=== PATIENT | male | born 2000 | race Caucasian/White ===

== ENCOUNTER → 2018-02-03 01:08 | Emergency (ER) | payer BC, SELFPAY ==
[2018-02-03 01:23] VITALS: BP 141/85; PULSE 88; RESP 16; TEMP 36.4; O2SAT 99; BMI 18.8
--- NOTE | 2018-02-03 01:25 | ED.RN ---
CALLED FOR EKG PER RN REQUEST, NO OLD EKGS IN MUSE
--- NOTE | 2018-02-03 01:26 | EKG12_ITS ---
Test Reason : CP Blood Pressure : / mmHG Vent. Rate : 073 BPM Atrial Rate : 073 BPM P-R Int : 124 ms QRS Dur : 092 ms QT Int : 376 ms P-R-T Axes : 069 040 057 degrees QTc Int : 414 ms Sinus rhythm with marked sinus arrhythmia Possible Left atrial enlargement Borderline ECG Confirmed by JLUIS SOTO, BLU ([id number]), mapping editor LUCRETIA CAMPBELL ([id number] on 02/06/2018 1:11:34 PM Referred By: BREANNE Confirmed By:BLU BAZZI MD
--- NOTE | 2018-02-03 01:30 | ED.VISSUMM ---
- ER Visit Summary Date of Service: 02/03/18 Chief Complaint: Right-sided chest pain History of Present Illness: The patient is a 17 M presents to the emergency department with right-sided chest pain. The patient has a long-standing history of asthma. He was recently diagnosed with a pneumonia. He states his symptoms began about 5 days ago. He had some upper respiratory drainage, low-grade fever and chills. He states that he felt like he was improving, but had worsening coughing. He went saw his primary care physician 2 days ago. At that time, he was diagnosed with suspected pneumonia. He was placed on Levaquin and steroids. He states that his cough has improved, but now he had a lot of pain in his right upper lobe especially with coughing. He had no further fever. Shortness of breath is also improved. He denies any history of pneumothorax. Physical Examination: Vital signs reviewed General: Well-nourished, well-developed Head: Normocephalic, atraumatic Eyes: Pupils equal and reactive, extraocular muscles intact Neck, supple, no lymphadenopathy Heart: Regular rate and rhythm Respiratory: No distress, focal wheezing in the right upper lobe Abdomen: Soft, nontender, nondistended, no peritoneal signs Back: Nontender Extremities: Nontender, no edema, no cords Skin: Normal color no rash Neuro: Alert and oriented, no focal or lateralizing deficits Test Results: [] Emergency Department Course and Treatment: The patient's pain does seem like it is entirely reproducible, but he also has it when he coughs he does have some focal wheezing in his right upper lobe. Given his age, I did obtain a chest x-ray. There is no pneumothorax or large infiltrate. He is not tachypneic. There is no hypoxia. He is PE RC negative. I do feel that this is more likely pleuritic given his underlying infectious process and persistent cough. He declined analgesics. He will continue his antibiotics until finished. He is comfortable with this plan will be discharged home. Treatment Plan: [] Disposition: Discharge Impression: 1. Right sided chest pain This note was generated with [employer] dictation software. It may contain incorrect words, spelling, and punctuation that were not noted in review of the chart prior to signing ED Disposition - Plan for ED Patient: Chief Complaint: Chest Pain Instructions: ED Chest Pain Pleurisy Referrals: Ariadna Coleman MD [Primary Care Provider] -
--- NOTE | 2018-02-03 01:40 | RAD_ITS ---
STUDY: X-RAY CHEST REASON FOR EXAM: Male, 17 years old. Cough and chest pain TECHNIQUE: Frontal and lateral views of the chest. COMPARISON: None. FINDINGS: The lungs are clear and expanded. There is no demonstrated pleural abnormality. Normal size heart. Normal mediastinum and tristan. Normal visualized pulmonary arteries. Normal visualized aortic arch and descending thoracic aorta. Normal visualized thoracic spine. Remote rib trauma. There is no demonstrated abnormality of the visualized soft tissue structures of the upper abdomen. RAD/Chest PA and Lateral IMPRESSION: No acute pulmonary findings. Electronically Signed: Tarik Eaton MD at 1:22 EDT Tel , Service support ,
== END | disposition home or self-care (01) ==
LOC: ED 01:49
PROVIDERS: Emergency Provider Emergency Medicine; Family Provider Internal Medicine; PCP Internal Medicine
DX: R07.89 Other chest pain (principal); R05 Cough; R06.09 Other forms of dyspnea; R50.9 Fever, unspecified; J45.909 Unspecified asthma, uncomplicated
CPT/HCPCS: 71046; 93005; 99282

== ENCOUNTER 2018-07-26 01:25 | Emergency (ER) | payer BC, SELFPAY ==
[2018-07-26 01:25] VITALS: BP 135/95; BP 136/76; PULSE 82; PULSE 85; RESP 16; TEMP 36.9; O2SAT 97; O2SAT 99; BMI 20.1
--- NOTE | 2018-07-26 01:44 | EKG12_ITS ---
Test Reason : Blood Pressure : / mmHG Vent. Rate : 056 BPM Atrial Rate : 056 BPM P-R Int : 138 ms QRS Dur : 096 ms QT Int : 378 ms P-R-T Axes : 065 067 070 degrees QTc Int : 364 ms Sinus bradycardia Incomplete right bundle branch block Borderline ECG Confirmed by ISSA SOTO, MARIAM ([id number]), brands editor ARIC PALACIOS ([id number]) on 07/29/2018 11:39:14 AM Referred By: DC Confirmed By:MARIAM PARSONS MD
--- NOTE | 2018-07-26 01:44 | RAD_ITS ---
STUDY: X-RAY CHEST REASON FOR EXAM: Male, 18 years old. Cough TECHNIQUE: PA and lateral views of the chest. COMPARISON: 02/03/2018 FINDINGS: There are superimposed monitor leads. Stable calcification left perihilar lung and right hilum. Stable hyperinflation. There is no focal parenchymal abnormality. There is no demonstrated pleural abnormality. Normal size heart. Normal mediastinum and tristan. Normal visualized pulmonary arteries. Normal visualized aortic arch and descending thoracic aorta. Normal visualized thoracic spine. Normal visualized ribs, clavicles, and shoulders. There is no demonstrated abnormality of the visualized soft tissue structures of the upper abdomen. RAD/Chest PA and Lateral IMPRESSION: There is no acute cardiopulmonary disease or active cavitating tuberculosis. Electronically Signed: Taty Moon MD at 2:21 EDT , Service support ,
[2018-07-26 02:28] VITALS: BP 120/89; BP 123/72; BP 129/85; PULSE 58; PULSE 63; PULSE 71
--- NOTE | 2018-07-26 02:48 | ED.DCSUM_ITS ---
- ER Visit Summary Date of Service: 07/26/18 Chief Complaint: Blacked out History of Present Illness: The patient is a 18 M who says he blacked out after coughing episode. The patient has been sick with a cough for about a week. He was diagnosed clinically with pneumonia. He was treated with prednisone, doxycycline, nebulizers, and Singulair. He never fainted or blacked out before. He said the episode lasted about 10 seconds. He woke up spontaneously. No shaking or postictal state. No history of seizures. No injuries. Physical Examination: Afebrile and vital signs unremarkable. Head and neck are atraumatic. HEENT exam unremarkable. Heart tachycardic but regular. Lungs clear. Abdomen soft. Skin appears normal. Cranial nerves grossly intact. Normal strength and sensation. Test Results: EKG showed sinus rhythm at a rate of 56 with an incomplete right bundle branch block pattern. Chest x-ray was normal. Orthostatic vital signs were unremarkable. He did have an occasional recorded heartbeat in the 50s, but otherwise his vitals were normal. Patient is not having bleeding, chest pain, or any other concerning symptoms. His work-up so far has been reassuring. Patient will be advised to stay hydrated. He was given syncope precautions. Follow-up with his primary care doctor. Return for any new or worsening issues. Emergency Department Course and Treatment: As above Treatment Plan: As above Disposition: Discharged Impression: 1. Syncopal episode This note was generated with [employer] dictation software. It may contain incorrect words, spelling, and punctuation that were not noted in review of the chart prior to signing ED Disposition - Plan for ED Patient: Referrals: Ariadna Coleman MD [Primary Care Provider] -
--- NOTE | 2018-07-26 02:48 | ED.DEP ---
ED Disposition - Plan for ED Patient: Instructions: ED Near Syncope Vasovagal Referrals: Ariadna Coleman MD [Primary Care Provider] -
[2018-07-26 03:05] VITALS: BP 137/96; PULSE 72; RESP 16; O2SAT 99
== END 2018-07-26 03:05 | disposition home or self-care (01) ==
PROVIDERS: Emergency Provider Emergency Medicine; Family Provider Internal Medicine; PCP Internal Medicine
DX: R55 Syncope and collapse (principal); I45.10 Unspecified right bundle-branch block; R05 Cough; R06.00 Dyspnea, unspecified; J45.909 Unspecified asthma, uncomplicated; F12.90 Cannabis use, unspecified, uncomplicated
CPT/HCPCS: 71046; 93005; 99284